=== PATIENT | male | born 1965 | race Caucasian/White ===

== ENCOUNTER 2019-11-17 05:41 | Inpatient (IN) | payer OTHER ==
[~2019-11-17] VITALS: Ht 195.6 cm; Wt 171.0 kg
[~2019-11-17 05:41] MED LIST: ATEN25TA PO; HYDR25TA6 PO; LOSA100T14 PO
[2019-11-17] MEDS ORDERED: BUPIVACAINE/PF 0.5% ONE (06:14)
[2019-11-17] MEDS ORDERED: EPINEPHRINE 1 MG/ML, 1ML ONE (06:14)
[2019-11-17] MEDS ORDERED: BACITRACIN 50,000 UNIT ONE (06:15)
[2019-11-17] MEDS ORDERED: LACTATED RINGERS 1,000 ML IV SCH (06:19)
[2019-11-17 06:22] VITALS: BP 127/85
[2019-11-17] MEDS ORDERED: MIDAZOLAM 1 MG/ML, 2ML ONE (06:56)
[2019-11-17] MEDS ORDERED: FENTANYL PF 250 MCG/5ML ONE ×2 (06:56→07:29)
[2019-11-17] MEDS ORDERED: SUCCINYLCHOLINE 20 MG/ML, 10ML ONE (07:00)
[2019-11-17] MEDS ORDERED: DEXAMETHASONE 4 MG/ML, 1ML ONE (07:00)
[2019-11-17] MEDS ORDERED: PHENYLEPHRINE 10 MG/ML ONE (07:00)
[2019-11-17] MEDS ORDERED: ONDANSETRON 2MG/ML, 2ML ONE (07:00)
[2019-11-17] MEDS ORDERED: CEFAZOLIN 1,000 MG ONE (07:00)
[2019-11-17] MEDS ORDERED: PROPOFOL 50 ML ONE ×2 (07:07→07:54)
[2019-11-17] MEDS ORDERED: REMIFENTANIL 2 MG ONE (07:09)
[2019-11-17] MEDS ORDERED: MEPERIDINE/PF 25MG/ML,1ML IVPush PRN (08:30)
[2019-11-17] MEDS ORDERED: METHOCARBAMOL 1,000 MG in DEXTROSE 5% 100 ML IV PRN ×2 (08:30→09:30)
[2019-11-17] MEDS ORDERED: hydrALAzine 20 MG/ML, 1ML IV PRN (08:30)
[2019-11-17] MEDS ORDERED: PROMETHAZINE 25 MG/ML, 1ML IV PRN (08:30)
[2019-11-17] MEDS ORDERED: OXYcodone 5 MG/5 ML ORAL.SOL UDC PO PRN (08:30)
[2019-11-17] MEDS ORDERED: ACETAMINOPHEN 325 MG TABLET PO PRN (08:30)
[2019-11-17] MEDS ORDERED: OXYcodone 5 MG/5 ML ORAL.SOL UDC ONE (09:20)
[2019-11-17] MEDS ORDERED: FENTANYL PF 100 MCG/2ML ONE (09:20)
[2019-11-17] MEDS ORDERED: METHOCARBAMOL 750 MG TABLET PO PRN (09:30)
[2019-11-17] MEDS ORDERED: MAGNESIUM HYDROXIDE 8%, 30ML UDC PO PRN (09:30)
[2019-11-17] MEDS ORDERED: HYDROcodone/APAP 5/325 TABLET PO PRN (09:30)
[2019-11-17] MEDS: FENTANYL PF 100 MCG/2ML IV PRN ×2 (09:30→09:35)
[2019-11-17] MEDS ORDERED: methylPREDNISolone*ACETATE* 80 MG/ML IM ONE (09:30)
[2019-11-17] MEDS ORDERED: PHARMACY MAY ADJ FOR RENAL FX MC PRN (09:30)
[2019-11-17] MEDS ORDERED: ONDANSETRON 2MG/ML, 2ML IVPush PRN (09:30)
[2019-11-17] MEDS ORDERED: OXYcodone/APAP 5/325MG TABLET PO PRN (09:30)
[2019-11-17] MEDS ORDERED: DIPHENHYDRAMINE 50 MG/ML, 1ML IVPush PRN (09:30)
[2019-11-17] MEDS ORDERED: HYDROcodone/APAP 10/325 MG TABLET PO PRN (09:30)
[2019-11-17] MEDS ORDERED: SENNA/DOCUSATE TABLET PO PRN (09:30)
[2019-11-17] MEDS ORDERED: morphine SULFATE 10 MG/ML, 1ML IVPush PRN (09:30)
[2019-11-17] MEDS ORDERED: PROMETHAZINE 25 MG/ML, 1ML IM PRN (09:30)
[2019-11-17] MEDS ORDERED: HYDROmorphone 1 MG/ML, 1ML INJ ONE (09:56)
[2019-11-17] MEDS: HYDROmorphone 2 MG/ML, 1ML IVPush PRN ×2 (10:00→10:10)
[2019-11-17 10:45] VITALS: BP 143/86
[2019-11-17] MEDS: D5%-0.9% NACL+KCL 20MEQ 1,000 ML IV SCH (11:50)
[2019-11-17] MEDS: OXYcodone/APAP 5/325MG TABLET PO PRN ×3 (13:03→21:15)
[2019-11-17 13:04] VITALS: BP 125/82
[2019-11-17] MEDS: CEFAZOLIN PMX 1GM/50ML 50 ML IVPB SCH ×2 (15:11→23:05)
[2019-11-17 20:06] VITALS: BP 150/106
[2019-11-17] MEDS: SODIUM CHLORIDE FLUSH 10ML SYR IVF SCH (20:12)
[2019-11-17] MEDS: CYCLOBENZAPRINE 10 MG TABLET PO PRN (20:13)
[2019-11-18] MEDS: D5%-0.9% NACL+KCL 20MEQ 1,000 ML IV SCH ×2 (01:00→12:10)
[2019-11-18 01:09] VITALS: BP 122/77
[2019-11-18] MEDS: OXYcodone/APAP 5/325MG TABLET PO PRN ×4 (01:15→13:22)
[2019-11-18 04:06] VITALS: BP 144/86
[2019-11-18] MEDS: CYCLOBENZAPRINE 10 MG TABLET PO PRN ×2 (04:11→12:25)
[2019-11-18 06:54] VITALS: BP 144/79
[2019-11-18] MEDS ORDERED: ATENOLOL 25 MG TABLET PO SCH (09:00)
[2019-11-18] MEDS ORDERED: LOSARTAN 100 MG TAB PO SCH (09:00)
[2019-11-18] MEDS ORDERED: HYDROCHLOROTHIAZIDE 25 MG TABLET PO SCH (09:00)
[2019-11-18] MEDS: SODIUM CHLORIDE FLUSH 10ML SYR IVF SCH (09:17)
[2019-11-18] MEDS ORDERED: methylPREDNISolone*ACETATE* 80 MG/ML IM ONE (09:30)
[2019-11-18] MEDS ORDERED: METH750T2 PO (11:52)
[2019-11-18] MEDS ORDERED: OXYC5TAB2 PO (11:53)
[2019-11-18 13:21] VITALS: BP 127/82
== END 2019-11-18 13:40 | disposition home or self-care (01) | DRG 473 ==
LOC: ORIP 05:41 → 4NE 10:52 → DCLOUNGE 11-18 13:30
PROVIDERS: ADMIT Neurological Surgery; ATTEND Neurological Surgery
PROC: 0RB30ZZ Excision of Cervical Vertebral Disc, Open Approach (ICD-10-PCS; 2019-11-17)
PROC: 0RG20A0 Fusion of 2 or more Cervical Vertebral Joints with Interbody Fusion Device, Anterior Approach, Anterior Column, Open Approach (ICD-10-PCS; principal; 2019-11-17 07:00)
DX: M48.02 Spinal stenosis, cervical region (principal); M47.22 Other spondylosis with radiculopathy, cervical region; M25.78 Osteophyte, vertebrae; I10 Essential (primary) hypertension; G47.33 Obstructive sleep apnea (adult) (pediatric); Z87.891 Personal history of nicotine dependence; Z72.89 Other problems related to lifestyle; Z82.49 Family history of ischemic heart disease and other diseases of the circulatory system
CPT/HCPCS: 72040; S0020; 95938; 95941; C1713; G0378; J0171; J0690; J1100; J1170; J2250; J2405; J2704; J3010; C1762; J0330; J1040; J2370; J2800; J3480; J7120